=== PATIENT | female | born 1955 | race Hispanic/Latino ===

== ENCOUNTER 2017-08-22 09:05 | Day surgery (SDC) | payer MEDICAID ==
[~2017-08-22] VITALS: Ht 152.4 cm; Wt 74.5 kg
[~2017-08-22 09:05] MED LIST: ALEN70TA47 PO; BUPR150T8 PO; ERGO500014 PO; FENO145T37 PO; LEVO88TA7 PO; LISI-613 PO; OMEP40CA37 PO; PRAV40TA3 PO; PREG150C PO; SERT100T PO; SODIUM CHLORIDE 0.9% 1000ML 1,000 ML IV ONE; TRAM50TA4 PO
[2017-08-22 10:56] VITALS: BP 144/84
[2017-08-22 11:45] VITALS: BP 107/54
[2017-08-22 12:10] VITALS: BP 139/64
== END 2017-08-22 12:20 ==
LOC: ENDO 09:05 → DAH 09:05 → ENDO 12:20
PROVIDERS: ATTEND Internal Medicine Gastroenterology
DX: K29.50 Unspecified chronic gastritis without bleeding (principal); K21.9 Gastro-esophageal reflux disease without esophagitis; K31.9 Disease of stomach and duodenum, unspecified; Z68.31 Body mass index [BMI] 31.0-31.9, adult; M81.0 Age-related osteoporosis without current pathological fracture; M19.90 Unspecified osteoarthritis, unspecified site; F32.9 Major depressive disorder, single episode, unspecified; E78.5 Hyperlipidemia, unspecified; I10 Essential (primary) hypertension; E03.9 Hypothyroidism, unspecified; Z90.710 Acquired absence of both cervix and uterus; Z98.890 Other specified postprocedural states; Z90.49 Acquired absence of other specified parts of digestive tract; Z82.49 Family history of ischemic heart disease and other diseases of the circulatory system; Z79.899 Other long term (current) drug therapy
CPT/HCPCS: 43239; 88305; 88312; A4606; J7030